=== PATIENT | male | born 1985 | race Caucasian/White ===

== ENCOUNTER 2025-01-24 04:50 | Emergency (ER) | payer MEDICAID, SELFPAY ==
[2025-01-24] VITALS (7 sets, daily range): BP systolic 129–140; BP diastolic 81–88; PULSE 79–108; RESP 18–20; TEMP 36.9; O2SAT 93–100
--- NOTE | ~2025-01-24 | XR_ITS ---
Examination: XR ankle RT min 3V, XR foot RT min 3V Clinical History: ankle pain/swelling Comparison: None Technique: 4 views right ankle, 4 views right foot Findings/impression: Right ankle: 1. No acute fracture or dislocation right ankle. 2. Soft tissue swelling along lateral malleolus. 3. 2 screws within medial malleolus. Right foot: 1. No fracture identified Reviewed, dictated and finalized at location R.
--- NOTE | ~2025-01-24 | CT_ITS ---
EXAMINATION: CTA abd aorta runoff DATE: 01/24/2025 07:23 INDICATION: Right lower limb pain and ecchymosis. TECHNIQUE: Computed tomographic angiography (CTA) of the abdominal, pelvis, and both lower extremities was performed with 150 mL Omnipaque-350 intravenous contrast. Automated exposure control and iterative reconstruction technique were employed. The dose-length product was 1961.51 mGy-cm. Maximum intensity projection 3D-reconstructions of the arteries were created by the technologist on a separate workstation. COMPARISON: None. FINDINGS: ABDOMINAL AORTA AND ITS BRANCHES: Abdominal aorta is normal in caliber. There is no significant stenosis of celiac axis, superior mesenteric artery, the renal arteries, or inferior mesenteric artery. PELVIC VASCULATURE: There is no significant stenosis of the common iliac arteries, internal iliac arteries, or external iliac arteries. RIGHT LOWER EXTREMITY VASCULATURE: There is no significant stenosis of right common femoral artery, superficial femoral artery, deep femoral artery, popliteal artery, tibioperoneal trunk, anterior tibial artery, posterior tibial artery, or peroneal artery. LEFT LOWER EXTREMITY VASCULATURE: There is no significant stenosis of left common femoral artery, profunda femoral artery, superficial femoral artery, popliteal artery, tibioperoneal trunk, anterior tibial artery, peroneal artery, or posterior tibial artery. ADDITIONAL FINDINGS: The visualized portions of the lung bases are clear without pneumonia or pleural effusion. The heart size is normal. No pericardial effusion. The liver, gallbladder, spleen, pancreas, and left adrenal gland are normal. There is a 2.5 cm mass containing fat in right adrenal gland, consistent with a myelolipoma. There are cysts in the kidneys measuring up to 12 mm on the right. There are no dilated loops of bowel. The appendix is normal. There are no pathologically enlarged lymph nodes. There is a small left inguinal hernia containing fat. There is internal fixation of right medial malleolus. There is asymmetric edema in right foot and ankle. IMPRESSION: 1. No significant arterial occlusive disease. Reviewed, dictated and finalized at location E.
--- NOTE | ~2025-01-24 | US_ITS ---
EXAMINATION: US venous doppler LE RT DATE: 01/24/2025 08:03 INDICATION: Right lower limb pain and swelling. TECHNIQUE: Grayscale ultrasound images without and with compression and Doppler ultrasound images of the right lower extremity veins were obtained. COMPARISON: None. FINDINGS: The visualized portions of right common femoral vein, profunda (deep) femoral vein, femoral vein, popliteal vein, peroneal veins, posterior tibial veins, and greater saphenous vein outflow are patent. IMPRESSION: 1. No deep venous thrombosis. Reviewed, dictated and finalized at location E.
[2025-01-24 05:50] LABS: Hematocrit 43.9 % (42.0-52.0); Hemoglobin 14.3 g/dL (14.0-18.0); Immature Granulocyte Percent A 1.4 % (0-0.5); Lymphocytes Absolute Auto 3.34 K/mm3 (0.9-3.2); Mean Corpuscular HGB Conc 32.6 g/dl (32-36); Mean Corpuscular Hemoglobin 27.1 pg (26-34); Mean Corpuscular Volume 83.3 fl (80-100); Nucleated Red Blood Cells Absolute Auto 0.000 K/mm3 (0.0-0.012); Nucleated Red Blood Cells Perc 0.0 % (0.0-0.2); Platelet Count Result 386 k/mm3 (150-375); Red Blood Count 5.27 M/mm3 (4.6-6.20); White Blood Count 12.4 K/mm3 (4.5-10.0)
[2025-01-24 06:02] LABS: Alanine Aminotransferase 57 U/L (6-50); Albumin Level 4.8 g/dL (3.5-5.1); Alkaline Phosphatase 120 U/L (38-126); Anion Gap 13 mmol/L (4-12); Aspartate Amino Transferase 39 U/L (17-59); Bilirubin,Total 0.6 mg/dL (0.2-1.3); Blood Urea Nitrogen 21 mg/dL (9-20); Calcium 9.6 mg/dL (8.4-10.2); Carbon Dioxide 23 mmol/L (22-30); Chloride 96 mmol/L (98-107); Estimated CRCL calculation 135 ml/min; Estimated Glomerular Filt Rate > 60; Glucose 106 mg/dL (65-110); Potassium 3.7 mmol/L (3.4-5.0); Sodium 132 mmol/L (137-145); Total Protein 8.5 g/dL (6.3-8.2)
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
[2025-01-24] MEDS: HYDROcodone/acetaminophen (*CRX) 5-325 MG TABLET 1 TAB PO (06:43)
[2025-01-24 06:59] LABS: INR 3.5; Prothrombin Time 33.8 Seconds (11.1-14.7)
[2025-01-24 07:00] LABS: Partial Thromboplastin Time 68.1 Seconds (22.3-36.8)
[2025-01-24 07:46] LABS: Creatine Kinase 155 U/L (55-170)
[2025-01-24 07:56] LABS: NT Pro B Type Natriuretic Pept < 20 pg/mL (19.9-100)
[2025-01-24] MEDS: CEPHALEXIN 500 MG CAPSULE PO (08:36)
== END 2025-01-24 08:59 | disposition home or self-care (01) ==
PROVIDERS: Emergency Provider Student in an Organized Health Care Education/Training Program
DX: L03.115 Cellulitis of right lower limb (principal); D72.829 Elevated white blood cell count, unspecified; E87.1 Hypo-osmolality and hyponatremia; R74.01 Elevation of levels of liver transaminase levels; D75.839 Thrombocytosis, unspecified; R79.1 Abnormal coagulation profile; Z86.718 Personal history of other venous thrombosis and embolism
CPT/HCPCS: 36415; 73610; 73630; 75635; 80053; 82550; 83880; 85025; 85380; 85610; 85730; 93971; 99284; A9270; Q9967